=== PATIENT | female | born 1965 | race Caucasian/White ===

== ENCOUNTER 2017-12-02 01:27 | Observation (INO) | payer OTHER ==
[2017-12-02] VITALS (9 sets, daily range): BP systolic 105–144; BP diastolic 66–81
[~2017-12-02] VITALS: Ht 170.2 cm; Wt 139.7 kg
[~2017-12-02 01:27] MED LIST: ASPI-1471 PO; BUPR-472 PO; BUS5 PO; BUSP15TA69 PO; CALC-852 PO; CELE-1 PO; CETI-176 PO; CHOL10005 PO; CYCL10TA29 PO; DICL100G39 TOP; ESTR-41 PO; FLUT16SP19 NS; FOLI0.4T56 PO; GENI30TA PO; GLUC100026 PO; MAGN500C10 PO; OMEP40CA48 PO; OXYC-857 PO; POLY17PO25 PO; POTA99TA10 PO; PREG150C33 PO; SERT-173 PO
[2017-12-02] MEDS ORDERED: MIDAZOLAM 2 MG/2 ML VIAL IVP PRN (06:00)
[2017-12-02] MEDS ORDERED: LIDOCAINE/SOD BICARB 8.4% SYR ID ONE (06:00)
[2017-12-02] MEDS ORDERED: CELECOXIB 200 MG CAP PO ONE (06:00)
[2017-12-02] MEDS ORDERED: ceFAZolin(*) 2GM/D5W 50ML 50 ML IVPB ONE (06:00)
[2017-12-02] MEDS ORDERED: NORMOSOL R SOLN(*) 1000 ML BAG 1,000 ML IV PRN (06:00)
[2017-12-02] MEDS ORDERED: ROPIVACAINE 0.2% 20 ML VIAL ONE (06:42)
[2017-12-02] MEDS ORDERED: MIDAZOLAM 2 MG/2 ML VIAL ONE (08:07)
[2017-12-02] MEDS ORDERED: fentaNYL CITR 100 MCG/2 ML AMP ONE ×2 (08:07→11:06)
[2017-12-02] MEDS ORDERED: DEXAMETHASONE SOD PHOS 10MG/ML ONE (08:08)
[2017-12-02] MEDS ORDERED: ROCURONIUM BROM 10 MG/ML 10 ML ONE (08:08)
[2017-12-02] MEDS ORDERED: ONDANSETRON 4 MG/2 ML VIAL ONE (08:08)
[2017-12-02] MEDS ORDERED: LIDOCAINE MPF 1% 5 ML VIAL ONE (08:08)
[2017-12-02] MEDS ORDERED: PROPOFOL EMUL(*) 10MG/ML 20 ML 20 ML ONE (08:08)
[2017-12-02] MEDS ORDERED: APAP/HYDROCODONE 325/5 TAB ONE (12:13)
[2017-12-02] MEDS ORDERED: HYDR-385 PO (12:27)
[2017-12-02] MEDS ORDERED: KETOROLAC 30 MG/ML VIAL ONE (13:06)
[2017-12-02] MEDS ORDERED: ALBUTEROL/IPRATROPIUM 3 ML NEB ONE (13:08)
--- NOTE | 2017-12-02 16:42 | Hospitalist Progress Note ---
Subjective Progress Notes Subjective Patient seen post-op. She reports doing well at this time. No CP/SOB/N/V. Reviewed PMHx (obesity, chronic pain, chronic use of pain meds, depression, lumbar disc disease, RLS, stroke) and medications. She was noted to have significant hypoxia in PACU when sleeping/drowsy on RA (require 4L oxygen to maintain adequate O2 saturation). She would have RA oxygen saturations in 88-91 % range. We had lengthy discussion regarding possible sleep apnea. She does have daytime somnolence/napping, non-restorative sleep, snoring, crowded oropharynx, obesity, use of sedatives. She does understand sleep apnea is very serious with many potential complications. She states she will use home oxygen and will follow up with her primary care provider in very near future to assess her need for sleep study. Physical Exam Vital Signs Date Time Temp Pulse Resp B/P (MAP) Pulse Ox O2 Delivery O2 Flow Rate FiO2 12/02/17 15:49 98.5 93 16 144/77 (99) 95 Nasal Cannula 4.0 Intake and Output 12/03/17 07:00 Intake Total 1780 ml Balance 1780 ml Intake Oral 480 ml IV Total 1300 ml # Voids 1 General Appearance: Alert, Awake Eyes: PERRLA Cardiovascular: Regular Rate and Rhythm Respiratory: Clear to Auscultation GI: Soft and Non-Tender (obese) Musculoskeletal: Other (Left knee dressed) Extremities: Warm, Perfused Psych: Alert & Oriented X3 Assessment and Plan Problems: (1) Sleep related hypoxia Status: Chronic Assessment & Plan: This is most likely related to chronic sleep apnea. We discussed this in depth. She does understand this very well. She states she will definitely follow up with her PCP. She would like to return home to [place], [place] (~[place] lower in elevation) [facility]. This certainly seems reasonable if we can get oxygen set up. Will get her started on home oxygen at 4L with sleep. She will need to follow up with her primary care provider in next 5-7 days to discuss further work-up (probable sleep study) and ongoing treatment. She will go to nearest ER if any problems. OMAR VORA MD Dec 02, 2017 16:42
--- NOTE | 2017-12-02 20:03 | OPERATIVE REPORT 1 ---
EVENT DATE: December 02, 2017 SURGEON: James Jasmine MD ANESTHESIOLOGIST: Paulo Dodge MD ANESTHESIA: General LMA anesthesia. SENIOR LOGISTICS MANAGER: ROMEL Dwyer PREOPERATIVE DIAGNOSIS Left knee cartilage damage and meniscus tears. POSTOPERATIVE DIAGNOSIS Left knee cartilage damage and meniscus tears. PROCEDURE PERFORMED Left knee partial medial meniscectomy, chondroplasty, and synovectomy. FINDINGS The patient had torn cartilage throughout the knee and had a significant amount of cartilage damage on the end of the femur and a large medial meniscus tear on the posteromedial meniscus, but was amenable for a chondroplasty, synovectomy, and partial meniscectomy. ESTIMATED BLOOD LOSS Minimal. DRAINS None. COMPLICATIONS None. IMPLANTS USED None. SPECIMENS None. TOURNIQUET TIME About 40 minutes. INDICATIONS AND HISTORY This patient is a 52-year-old female who presented to my clinic for evaluation of left knee pain and irritation going on for some time. She continued to have pain and irritation despite conservative management, and so therefore, she wanted to go ahead with a MRI. Advanced imaging revealed that she had a large medial meniscus tear as well as significant cartilage damage throughout. I talked to her about a total knee arthroplasty versus knee arthroscopy for partial meniscectomy, chondroplasty, and synovectomy. She wanted to try an arthroscopy first secondarily due to the fact that she had pretty good relief out of her last one, and there was a large meniscus tear. I told her there was no guarantee associated with this, but it may give her pretty good pain relief to try and hold her off on a total knee as long as possible, and she understood. The risks and benefits were discussed, and informed consent was obtained at the last clinic visit. DESCRIPTION OF PROCEDURE As the patient was brought into the operating room, she and the procedure were both verified. She was placed supine on the operating table and induced and intubated by Anesthesia. The left lower extremity was then prepped and draped in the usual fashion. A timeout was observed verifying the correct patient and procedure. After the induction, I was then able to inflate the tourniquet to 275 mmHg, which was left up there during the entirety of the case which took about 40 minutes. I then made incisions over the anterior aspect of the knee, utilized the old incisions, and then was able to insert the scope on the lateral side and do a diagnostic arthroscopy throughout. This was when there was noted to be a significant amount of cartilage damage throughout the patellofemoral joint and the distal femoral condyle, especially on the medial side, and a large medial plica. I was then able to remove this using a suction shaver and also a little bit of electrocautery as there was some bleeding from a probable venous tourniquet through this area. Once I was able to do a chondroplasty in the patellofemoral joint and also on the medial femoral condyle and also removed that plica, I was then able to go into the medial meniscus area in the medial compartment, and then probing the medial meniscus showed a large medial meniscus tear in the posterior aspect of the meniscus. Using a combination of a meniscal biter and a suction shaver, I was able to remove this without any major issues. It was stable to the base upon probe afterwards, and I also removed some of the anterior meniscus where there was fraying and irritation associated with this. I then went into the central pivot where there was noted to be lots of fraying associated with the ACL. I did remove this and then also removed some of the synovitis through this area. I then went into the lateral compartment, and there were no signs of major meniscal tearing on this side, so we probed it and made sure there were no signs of issues. I did a chondroplasty on the femur as well as the proximal tibia on this side and then put the knee back out straight. I then switched the portals and viewed from the medial side. I then was able to remove the lateral plica and some of the cartilage areas that were troublesome on this side. I did a chondroplasty in the patellofemoral joint and a little bit on the lateral femoral condyle. I then made sure all bleeders were cauterized and then removed all instrumentation. I drained the fluid out of the knee and then closed the portal sites with a 4-0 nylon in an interrupted mattress-type fashion. This was done followed by a Xeroform gauze, 4 x 4's, and a soft dressing. Tourniquet was let down after about 40 minutes, and the patient was awakened, extubated, and transferred to PACU in stable condition where she will be weightbearing as tolerated. BRUNA
== END 2017-12-02 18:00 | disposition home or self-care (01) ==
LOC: OR 01:27 → MED 15:45
PROVIDERS: ADMIT Orthopaedic Surgery; ATTEND Orthopaedic Surgery
DX: S83.242A Other tear of medial meniscus, current injury, left knee, initial encounter (principal)
CPT/HCPCS: 29881; 94640; 94667; G0378; J1100; J1885; J2001; J2405; J2704; J2795; J3010; J7620; J2250